=== PATIENT | female | born 1960 | race Caucasian/White ===

== ENCOUNTER 2019-04-10 14:16 | Emergency (ER) | payer BC, OTHER ==
--- NOTE | 2019-04-10 14:22 | UC ---
Complaint Female HPI - History Of Current Complaint Stated Complaint: URINARY COMPLAINT Time Seen by Provider: 04/10/19 14:20 Hx Last Menstrual Period: 20 yrs - Allergies/Home Medications Allergies/Adverse Reactions: Allergies Allergy/AdvReac Type Severity Reaction Status Date / Time MS Sulfa Drugs [Sulfa Drugs] Allergy Unknown Hives Verified 04/17/14 12:26 MS Penicillins [Penicillins] Allergy Hives Verified 04/17/14 12:26 PMH/Surg Hx/FS Hx/Imm Hx - Additional Past Medical History Additional PMH: BRCA - Surgical History Surgical History: Yes Surgery Procedure, Year, and Place: Right Breast Lumpectomy and Left Breast Reduction, 01/11/14. Colon and Stomach Polyps , ~2011. Gastric Bypass, 2009, Dr. Mccoy. Total Hysterectomy, 1995 - Family History Known Family History: Positive: Hypertension - Social History Lives: With Family Alcohol Use: Rare Substance Use Type: None Smoking Status (MU): Former Smoker Type: Cigarettes Amount Used/How Often: 1 PPD Length of Time of Smoking/Using Tobacco: 10 Years Have You Smoked in the Last Year: No When Did the Patient Quit Smoking/Using Tobacco: ~1994 - Immunization History Most Recent Influenza Vaccination: 01/21/14 Review of Systems All Other Systems Reviewed And Are Negative: No Constitutional: Positive: Negative Skin: Positive: Negative Respiratory: Positive: Negative Cardiovascular: Positive: Negative Genitourinary: Positive: Dysuria Neurological: Positive: Negative Psychological: Positive: Negative Physical Exam - Summary Physical Exam Summary: GENERAL: NAD. WDWN. No pain distress. SKIN: No rashes, sores, lesions, or open wounds. NECK: Supple. Nontender. No lymphadenopathy. CHEST: CTAB. No r/r/w. No accessory muscle use. Breathing comfortably and in no distress. CV: RRR. Pulses intact. Cap refill <2seconds ABDOMEN: Soft. NTTP. No distention or guarding. No organomegaly. No CVA tenderness. Bowel sounds present NEURO: Alert. PSYCH: Age appropriate behavior. Triage Information Reviewed: Yes Vital Signs Reviewed: Yes Discharge ED - Sign-Out/Discharge Documenting (check all that apply): Patient Departure All imaging exams completed and their final reports reviewed: No Studies - Discharge Plan Condition: Stable Disposition: HOME Referrals: Mario David MD [Primary Care Provider] - - Billing Disposition and Condition Condition: STABLE Disposition: Home
[2019-04-10 14:38] VITALS: BP 136/80
--- NOTE | 2019-04-10 14:39 | UC ---
Complaint Female HPI - HPI Summary HPI Summary: 59 yo woman with hx of DCIS, with onset yesterday of typical urinary tract symptoms of dysuria and frequency. No fever or chills; stools have been loose. No nausea or vomiting. - History Of Current Complaint Stated Complaint: URINARY COMPLAINT Time Seen by Provider: 04/10/19 14:20 Hx Obtained From: Patient Hx Last Menstrual Period: 20 yrs Onset/Duration: Sudden Onset Timing: Intermittent, Lasting Minutes Severity Initially: Mild Severity Currently: Moderate Character: Burning Aggravating Factor(s): Urination Alleviating Factor(s): Nothing Associated Signs And Symptoms: Positive: Negative Related Hx: Similar Episode/Dx as: - UTI - Risk Factors Ectopic Risk Factor: Negative Ovarian Torsion Risk Factor: Negative - Allergies/Home Medications Allergies/Adverse Reactions: Allergies Allergy/AdvReac Type Severity Reaction Status Date / Time Penicillins Allergy Hives Verified 04/10/19 14:38 Sulfa (Sulfonamide Allergy Hives Verified 04/10/19 14:38 Antibiotics) PMH/Surg Hx/FS Hx/Imm Hx Cancer History: Breast Cancer - hx of DCIS - Surgical History Surgical History: Yes Surgery Procedure, Year, and Place: Right Breast Lumpectomy and Left Breast Reduction, 01/11/14. Colon and Stomach Polyps , ~2011. Gastric Bypass, 2009, Dr. Mccoy. Total Hysterectomy, 1995 - Family History Known Family History: Positive: Non-Contributory - Social History Occupation: Retired Lives: With Family Alcohol Use: "maybe a glass a month" Substance Use Type: None Smoking Status (MU): Former Smoker Type: Cigarettes Amount Used/How Often: 1 PPD Length of Time of Smoking/Using Tobacco: 10 Years Have You Smoked in the Last Year: No When Did the Patient Quit Smoking/Using Tobacco: ~1994 - Immunization History Most Recent Influenza Vaccination: 01/21/14 Review of Systems All Other Systems Reviewed And Are Negative: Yes Constitutional: Positive: Negative Skin: Positive: Negative Eyes: Positive: Negative ENT: Positive: Negative Respiratory: Positive: Negative Cardiovascular: Positive: Negative Gastrointestinal: Positive: Abdominal Pain - suprapubic cramping Genitourinary: Positive: Dysuria, Frequency. Negative: Hematuria Motor: Positive: Negative Neurovascular: Positive: Negative Musculoskeletal: Positive: Negative Neurological: Positive: Negative Psychological: Positive: Negative Is Patient Immunocompromised?: No Physical Exam Triage Information Reviewed: Yes Appearance: Well-Appearing, No Pain Distress, Obese ENT: Positive: Pharynx normal Neck: Positive: Supple, Nontender, No Lymphadenopathy Respiratory: Positive: Lungs clear, Normal breath sounds Abdomen Description: Positive: No Organomegaly, Soft, Other: - + suprapubic tenderness. Negative: CVA Tenderness (R), CVA Tenderness (L), Distended, Guarding Bowel Sounds: Positive: Present Musculoskeletal Exam: Normal Neurological Exam: Normal Psychological Exam: Normal Skin Exam: Normal Diagnostics - Laboratory Lab Results: UA with 1+ esterace Complaint Female Dx - Course Course Of Treatment: macrobid for treatment of UTI. Increase fluids. - Differential Dx/Diagnosis Differential Diagnosis/HQI/PQRI: Urinary Tract Infection Provider Diagnosis: UTI (urinary tract infection) Discharge ED - Sign-Out/Discharge Documenting (check all that apply): Patient Departure All imaging exams completed and their final reports reviewed: No Studies - Discharge Plan Condition: Stable Disposition: HOME Prescriptions: Nitrofurantoin Monohyd/M-Cryst [Macrobid 100 mg Capsule] 100 mg PO BID #14 cap Patient Education Materials: Urinary Tract Infection in Women (ED) Referrals: Mario David MD [Primary Care Provider] - Additional Instructions: Urine culture will be sent and you will receive a call if a change of antibiotic is needed based on the report of the culture. Ensure a high intake of fluids. Follow up with Dr. David if you have persistent symptoms. - Billing Disposition and Condition Condition: STABLE Disposition: Home
--- NOTE | 2019-04-13 07:34 | UC ---
- Progress Note Progress Note: negative cultures stop antibiotics follow up with PCP Course/Dx - Diagnoses Provider Diagnoses: UTI (urinary tract infection) Discharge ED - Sign-Out/Discharge Documenting (check all that apply): Patient Departure All imaging exams completed and their final reports reviewed: No Studies - Discharge Plan Condition: Good Disposition: HOME Prescriptions: Nitrofurantoin Monohyd/M-Cryst [Macrobid 100 mg Capsule] 100 mg PO BID #14 cap Patient Education Materials: Urinary Tract Infection in Women (ED) Referrals: Mario David MD [Primary Care Provider] - Additional Instructions: Urine culture will be sent and you will receive a call if a change of antibiotic is needed based on the report of the culture. Ensure a high intake of fluids. Follow up with Dr. David if you have persistent symptoms. - Billing Disposition and Condition Condition: GOOD Disposition: Home
== END 2019-04-10 15:02 | disposition home or self-care (01) ==
LOC: UCCORT 14:16
DX: N39.0 Urinary tract infection, site not specified (principal); Z87.891 Personal history of nicotine dependence; Z88.0 Allergy status to penicillin; Z88.2 Allergy status to sulfonamides
CPT/HCPCS: 81003; 87086; 99202; G0463